=== PATIENT | male | born 1950 | race Caucasian/White ===

== ENCOUNTER 2021-03-04 10:55 | Emergency (ER) | payer MEDICARE, OTHER, SELFPAY ==
[2021-03-04] VITALS (10 sets, daily range): BP systolic 125–147; BP diastolic 74–87; PULSE 72–107; RESP 16–20; TEMP 36.7; O2SAT 95–98; BMI 33.9
--- NOTE | 2021-03-04 11:21 | DI.RAD.S_ITS ---
PROCEDURE: XR ANKLE RT MIN 3V INDICATIONS: deformity TECHNIQUE: 3 views of the ankle were acquired. COMPARISON: None. FINDINGS: Bones: There is an impacted appearance of the anterior calcaneus. Irregular lucencies are noted. It is overall poorly visualized. In addition, there is a fracture fragment identified on the AP view to the right of the inferior talus. Soft tissues: No tibiotalar joint effusion. Achilles tendon appears normal. IMPRESSION: Suspected comminuted impacted fracture of the anterior calcaneus as above. However, it is poorly visualized. Osseous fragment noted on the AP view adjacent to the talus is suspected to be related to the calcaneal fracture. However, calcaneal views or CT is recommended for further visualization. Dictated by: Jennifer Craig M.D. on 03/04/2021 at 11:51 Approved by: Jennifer Craig M.D. on 03/04/2021 at 11:52
--- NOTE | 2021-03-04 15:20 | ED_ITS ---
HPI - Extremity Injury (Lower) General Chief Complaint: Extremity Injury, Lower Stated Complaint: glf off latter and landed on right ankle Time Seen by Provider: 03/04/21 15:20 Source: patient Mode of arrival: Wheelchair Limitations: no limitations History of Present Illness HPI Narrative: Patient is a 70-year-old male who presents with right ankle pain. He was stepping down a ladder from a boat onto a gravel path when it broke and he fell landing on his right ankle. He is unable to bear weight. He denies numbness tingling or weakness. It is quite painful to move in any position the wheelchair hurt resting his heel on the rest Related Data Allergies Allergy/AdvReac Type Severity Reaction Status Date / Time No Known Drug Allergies Allergy Verified 03/04/21 11:18 Review of Systems Review of Systems Narrative: GENERAL: Denies chills,fever HEENT: Denies throat pain RESPIRATORY: Denies dyspnea, cough, wheezing CARDIOVASCULAR: Denies chest pain, palpitations GASTROINTESTINAL: Denies nausea, vomiting MUSCULOSKELETAL: See HPI SKIN: No rash, no laceration, no pruritus NEUROLOGIC: Denies weakness, dizziness, headache, numbness 8 point review of systems is negative except for those stated above and HPI Patient History Social History Smoking Status: Former smoker Smoking Status: Former smoker alcohol intake frequency: 3 or more drinks per day Alcohol type: beer Substance Use Type: does not use Exam Initial Vital Signs Initial Vital Signs: Vital Signs Temperature 98.0 F 03/04/21 11:12 Pulse Rate 107 H 03/04/21 11:12 Respiratory Rate 20 03/04/21 11:12 Blood Pressure 125/75 03/04/21 11:12 Pulse Oximetry 96 03/04/21 11:12 GENERAL: Well-appearing, well-nourished and in no acute distress. CARDIOVASCULAR: peripheral pulses in tact, cap refill <2 sec RESPIRATORY: No respiratory distress, speaks in full sentences without difficulty EXTREMITIES: Normal range of motion, no clubbing or edema. Neurovascularly intact. Right ankle contusion laterally over lateral malleoli. Able to move toes distal pedal pulse is intact. NEUROLOGICAL: Cranial nerves II through XII grossly intact. Normal gait and speech. SKIN: Warm, dry, no petechiae, no rashes or lesions. Procedures Orthopedic Splinting/Casting Injury #1: Time of procedure: 20:48 Lower Extremity Immobilizer: posterior splint and stirrup splint Post splinting neuro exam: intact and no change Post splinting vascular exam: no change Placed by: Nursing Course Orders Ordered: ED Orders 03/04/21 15:20 CT LE RT wo con Stat 03/04/21 19:45 COVID19 -Nasal swab/Pre-Proc Stat Discontinued Medications Hydrocodone Bitart/Acetaminophen (Hydrocodone/Acet 5/325 Tablet) 1 tab PO NOW ONE Stop: 03/04/21 18:48 Last Admin: 03/04/21 18:54 Dose: 1 tab Documented by: HANNY Ibuprofen (Ibuprofen 400 Mg Tablet) 800 mg PO NOW ONE Stop: 03/04/21 15:25 Last Admin: 03/04/21 15:27 Dose: 800 mg Documented by: HANNY Morphine Sulfate (Morphine 4 Mg/Ml Inj) 4 mg SUBCUT NOW ONE Stop: 03/04/21 16:53 Last Admin: 03/04/21 17:00 Dose: 4 mg Documented by: HANNY Ondansetron HCl (Ondansetron 4 Mg Odt) 4 mg SL NOW ONE Stop: 03/04/21 16:53 Last Admin: 03/04/21 17:00 Dose: 4 mg Documented by: HANNY Vital Signs Vital signs: Vital Signs - 8 hr 03/04/21 17:19 03/04/21 17:20 03/04/21 17:30 Pulse Rate 92 H 89 Respiratory Rate Blood Pressure 130/87 Pulse Oximetry 96 96 03/04/21 17:59 03/04/21 18:00 03/04/21 20:17 Pulse Rate 88 86 75 Respiratory Rate 16 Blood Pressure 147/85 H 138/75 Pulse Oximetry 98 97 98 MDM - Extremity Injury (Lower) Lab Data Labs: Lab Results 03/04/21 Range/Units 19:45 SARS-CoV-2 (PCR) Negative (Negative) Imaging Data Extremity x-ray #1: Radiologist's Impression: PROCEDURE: XR ANKLE RT MIN 3V INDICATIONS: deformity TECHNIQUE: 3 views of the ankle were acquired. COMPARISON: None. FINDINGS: Bones: There is an impacted appearance of the anterior calcaneus. Irregular lucencies are noted. It is overall poorly visualized. In addition, there is a fracture fragment identified on the AP view to the right of the inferior talus. Soft tissues: No tibiotalar joint effusion. Achilles tendon appears normal. IMPRESSION: Suspected comminuted impacted fracture of the anterior calcaneus as above. However, it is poorly visualized. Osseous fragment noted on the AP view adjacent to the talus is suspected to be related to the calcaneal fracture. However, calcaneal views or CT is recommended for further visualization. Dictated by: Jennifer Craig M.D. on 03/04/2021 at 11:51 CT LE: Radiologist's Impression: PROCEDURE: CT LE RT WO CON INDICATIONS: possible calcaneous fracture TECHNIQUE: Noncontrast 1-1.5 mm axial sections acquired from above the tibiotalar joint to the bottom of the calcaneus, with coronal and sagittal reformats. COMPARISON: [facility], CR, XR ANKLE RT MIN 3V, 03/04/2021, 11:23. FINDINGS: Image quality: Excellent. Bones: There is a burst fracture involving the anterior calcaneus, with a diagonal fracture plane intersecting the articular surface between the calcaneus and cuboid bone, and a 2nd slightly oblique fracture plane is associated with displacement and posterior malalignment of the middle facet of the subtalar joint. There is comminution and impaction along the fracture planes, moderate in severity, and yet the talus appears intact as does the navicular bone. Hindfoot instability appears present, with anterior displacement of the middle and posterior thirds of the calcaneus, resulting in dislocation at the posterior subtalar joint, which is displaced anteriorly along its calcaneal border. This results in the normal apposition of the facets of the subtalar joint being displaced from anatomic alignment. Soft tissues: Soft tissue swelling, no hematoma found. IMPRESSION: Complex comminuted impacted fractures with significant displacement abnormalities centered on the anterior 3rd of the calcaneus and with the middle and posterior thirds of the calcaneus shifted anteriorly from anatomic alignment. This implies hindfoot instability. There is secondary significant malalignment at the interface is between the 3 facets of the subtalar joint. Intra-articular extension of fracture planes intersect the calcaneocuboid joint. The talonavicular articulation appears intact. Dictated by: Teja Sterling M.D. on 03/04/2021 at 15:58 MDM Narrative Medical decision making narrative: 1650 Dr. Castillo has reviewed CT. At his he has discussed case with Foot and Ankle specialist unable to fix at this facility. Recommend discussing case with [facility] for repair. Awaiting for [facility] to return call [phone] Dr. Dee, [facility] Orthopedics updated on patient's symptoms test results reviewed CT recommends transfer to her reviewed this evening. Discharge Plan Departure Patient Disposition: [facility] Clinical Impression: Calcaneal fracture
[2021-03-04] MEDS: IBUPROFEN 400 MG TABLET 800 MG PO (15:27)
[2021-03-04] MEDS: ONDANSETRON 4 MG ODT SL (17:00)
[2021-03-04] MEDS: MORPHINE 4 MG/ML INJ SUBCUT (17:00)
[2021-03-04] MEDS: HYDROCODONE/ACET 5/325 TABLET 1 TAB PO (18:54)
[2021-03-04 20:14] LABS: COVID19 -Nasal RAPID Negative (Negative)
[2021-03-04] MEDS: MORPHINE 4 MG/ML INJ IV (22:45)
[2021-03-05 00:08] VITALS: PULSE 72; O2SAT 95
[2021-03-05 00:30] VITALS: PULSE 67; O2SAT 98
[2021-03-05 00:46] VITALS: BP 128/75; PULSE 80; RESP 20; O2SAT 99
== END 2021-03-05 00:47 | disposition short-term general hospital (02) ==
PROVIDERS: Emergency Provider Emergency Medicine
DX: S92.061A Displaced intraarticular fracture of right calcaneus, initial encounter for closed fracture (principal); W19.XXXA Unspecified fall, initial encounter; Z20.822 Contact with and (suspected) exposure to COVID-19
CPT/HCPCS: 73610; 73700; 87635; 96372; 96374; 99284; C9803; J2270